=== PATIENT | male | born 1940 | race Caucasian/White ===

== ENCOUNTER 2023-04-22 23:07 | Emergency (ER) | payer MEDICARE ==
[2023-04-23 00:23] LABS: BASOPHILS % (AUTO) 0.7 %; EOSINOPHILS # (AUTO) 0.2 10^3/uL (0.0-0.7); EOSINOPHILS % (AUTO) 2.6 %; HCT - HEMATOCRIT 34.3 % (42.0-52.0); HGB - HEMOGLOBIN 11.3 g/dL (14.0-18.0); LYMPHOCYTES # (AUTO) 0.5 10^3/uL (1.5-3.5); LYMPHOCYTES % (AUTO) 8.3 %; MEAN CORPUSCULAR HEMOGLOBIN 29.8 pg (27.0-31.0); MEAN CORPUSCULAR HGB CONC 32.9 g/dL (32.0-36.0); MEAN CORPUSCULAR VOLUME 90.5 fL (80.0-94.0); MEAN PLATELET VOLUME 9.5 fL (7.4-11.4); MONOCYTES # (AUTO) 0.7 10^3/uL (0.0-1.0); MONOCYTES % (AUTO) 11.6 %; NEUTROPHILS # (AUTO) 4.4 10^3/uL (1.5-6.6); NEUTROPHILS % (AUTO) 76.5 %; PLT - PLATELET COUNT 108 10^3/uL (130-450); RED BLOOD COUNT 3.79 10^6/uL (4.70-6.10); RED CELL DISTRIBUTION WIDTH 13.3 % (12.0-15.0); WHITE BLOOD COUNT 5.8 x10^3/uL (4.8-10.8)
--- NOTE | 2023-04-23 00:28 | ED Physician Documentation ---
History of Present Illness - Stated complaint Stated Complaint: PEARSON/CP - Chief complaint Chief Complaint: Cardiac - Additonal information Additional information: 83-year-old male presenting to the emergency department with headache and chest pressure. Reports history of coronary artery disease, with 2 previous stents as well as hypertension and dyslipidemia for which she takes lisinopril and simvastatin. For the last 3 days has had low level headache. This was not maximal at time of onset. There is no associated thunderclap, syncope, fever or neck stiffness. Reports has taken Tylenol at home with only minimal symptomatic relief. Similarly over the course of the last 3 days he has had persistent chest pressure. He also reports that he has had cough but denies any congestion. Does report that he recently received his first Moderna COVID immunization as well as a flu shot last Wednesday. No known sick contacts. Review of Systems Constitutional: reports: Fatigue. denies: Fever, Chills, Myalgias Eyes: denies: Loss of vision Ears: denies: Loss of hearing, Ear pain Nose: denies: Rhinorrhea / runny nose, Foreign Body Throat: denies: Dental pain / toothache, Oral lesions / sores Cardiac: reports: Chest pain / pressure. denies: Palpitations Respiratory: reports: Cough GI: denies: Abdominal Pain, Nausea, Vomiting, Constipation, Diarrhea : denies: Dysuria Skin: denies: Rash Musculoskeletal: denies: Neck pain Neurologic: reports: Headache. denies: Generalized weakness Psychiatric: denies: Depressed Endocrine: denies: Polydypsia PD PAST MEDICAL HISTORY - Present Medications Home Medications: Ambulatory Orders Medication Instructions Recorded Confirmed Atenolol [Tenormin] 50 mg PO DAILY 04/22/23 Losartan [Cozaar] 50 mg PO DAILY 04/22/23 Simvastatin [Zocor] 20 mg PO DAILY 04/22/23 - Allergies Allergies/Adverse Reactions: Allergies Allergy/AdvReac Type Severity Reaction Status Date / Time No Known Drug Allergies Allergy Verified 04/22/23 23:18 PD ED PE NORMAL - Vitals Vital signs reviewed: Yes (Within normal limits) - General General: Alert and oriented X 3, No acute distress, Well developed/nourished - HEENT HEENT: Atraumatic, PERRL, EOMI, Ears normal, Moist mucous membranes, Pharynx benign, Dentition benign - Neck Neck: Supple, no meningeal sign, No bony TTP, No adenopathy, Thyroid normal, No JVD, No bruit, C-Spine cleared by NEXUS criteria - Cardiac Cardiac: RRR - Respiratory Respiratory: No respiratory distress - Abdomen Abdomen: Normal bowel sounds - Male Male : Deferred - Rectal Rectal: Deferred - Back Back: No CVA TTP - Derm Derm: Normal color - Extremities Extremities: No deformity - Neuro Neuro: Alert and oriented X 3, chef german 2-12 intact, No motor deficit, No sensory deficit, Normal speech Results - Vitals Vitals: Vital Signs - 24 hr 04/22/23 23:10 Temperature 37.0 C Heart Rate 62 Respiratory 18 Rate Blood Pressure 150/62 H O2 Saturation 98 Oxygen O2 Source Room air - EKG (time done) 2321 EKG releavant findings:: EKG personally interpreted by author of this note. Relevant findings are: Sinus rhythm with rate 65 bpm. Normal axis. MA interval prolonged at 255 ms. Normal QRS and QTc intervals. No ST segment elevations or T wave inversions. - Labs Labs: Laboratory Tests 04/22/23 04/23/23 04/23/23 23:20 00:19 00:19 WBC 5.8 RBC 3.79 L Hgb 11.3 L Hct 34.3 L MCV 90.5 MCH 29.8 MCHC 32.9 RDW 13.3 Plt Count 108 L MPV 9.5 Neut # (Auto) 4.4 Lymph # (Auto) 0.5 L [place] # (Auto) 0.7 Eos # (Auto) 0.2 Baso # (Auto) 0.0 Absolute Nucleated RBC 0.00 Nucleated RBC % 0.0 Sodium 136 Potassium 3.8 Chloride 105 Carbon Dioxide 24 Anion Gap 7.0 BUN 16 Creatinine 0.9 Estimated GFR (MDRD) 81 L Glucose 104 Calcium 8.9 Total Bilirubin 0.5 AST 18 ALT 25 Alkaline Phosphatase 68 Troponin I High Sens 6.6 Total Protein 6.0 L Albumin 3.8 Globulin 2.2 Albumin/Globulin Ratio 1.7 Lipase 36 Nasal Adenovirus (PCR) NOT DETECTED Nasal B. parapertussis DNA (PCR) NOT DETECTED Nasal Coronavir 229E PCR NOT DETECTED Nasal Coronavir HKU1 PCR NOT DETECTED Nasal Coronavir NL63 PCR NOT DETECTED Nasal Coronavir OC43 PCR NOT DETECTED Nasal Enterovir/Rhinovir PCR NOT DETECTED Nasal Influenza B PCR NOT DETECTED Nasal Influenza A PCR NOT DETECTED Nasal Parainfluen 1 PCR NOT DETECTED Nasal Parainfluen 2 PCR NOT DETECTED Nasal Parainfluen 3 PCR NOT DETECTED Nasal Parainfluen 4 PCR NOT DETECTED Nasal RSV (PCR) NOT DETECTED Nasal B.pertussis DNA PCR NOT DETECTED Nasal C.pneumoniae (PCR) NOT DETECTED Stanislav Human Metapneumo PCR NOT DETECTED Nasal M.pneumoniae (PCR) NOT DETECTED Nasal SARS-CoV-2 (PCR) NOT DETECTED PD Medical Decision Making - ED course Complexity details: reviewed results, re-evaluated patient, considered differential, d/w patient ED course: Patient 83-year-old male presenting to the emergency department with 3-day history headache, cough, chest pressure. Afebrile, hemodynamically stable. EKG nonacute. No indications PE as patient does not have active tachypnea, tachycardia, shortness of breath. Labs all very reassuring. High-sensitivity troponin is negative. Chest x-ray negative for pneumothorax, hemothorax or intrathoracic abnormality per my int erpretation. Departure - Departure Disposition: 01 Home, Self Care Clinical Impression: Chest pressure Headache Qualifiers: Headache type: unspecified Headache chronicity pattern: acute headache Intractability: not intractable Qualified Code(s): R51.9 - Headache, unspecified Comments: Thank you for allowing us to care for you today [facility]. Today in the emergency department your evaluated for any possible life- threatening medical emergency. All the testing performed in the emergency department today including your EKG, blood work and chest x-ray are all very reassuring. You did not test positive for the SARS COVID virus or influenza and there is no indication of injury to your heart at this time. I do want you to drink plenty fluids and get plenty of rest over the course the next few days as I believe you could be suffering from a mild viral illness. I also want you to follow-up with your primary care doctor concerning your ED visit as soon as possible. If it anytime you have new or worsening symptoms please return to the emergency department immediately for reevaluation. Forms: PCP List
[2023-04-23 00:40] LABS: ALBUMIN 3.8 g/dL (3.2-5.5); ALBUMIN/GLOBULIN RATIO 1.7 (1.0-2.2); BILIRUBIN,TOTAL 0.5 mg/dL (0.2-1.0); CALCIUM 8.9 mg/dL (8.5-10.3); CREATININE 0.9 mg/dL (0.6-1.3); POTASSIUM 3.8 mmol/L (3.5-4.5)
[2023-04-23 00:45] LABS: TROPONIN I HIGH SENSITIVITY 6.6 ng/L (2.3-19.7)
[2023-04-23 00:49] LABS: B. PARAPERTUSSIS- RESP PCR PAN NOT DETECTED; B. PERTUSSIS- RESP PCR PANEL NOT DETECTED; C. PNEUMONIAE- RESP PCR PANEL NOT DETECTED; CORONAVIRUS 229E-RESP PCR NOT DETECTED; CORONAVIRUS HKU1-RESP PCR NOT DETECTED; CORONAVIRUS NL63-RESP PCR NOT DETECTED; CORONAVIRUS OC43-RESP PCR NOT DETECTED; HUMAN METAPNEUMOVIRUS NOT DETECTED; INFLUENZA A- RESP PCR PANEL NOT DETECTED; INFLUENZA B - RESP PCR PANEL NOT DETECTED; M. PNEUMONIAE- RESP PCR PANEL NOT DETECTED; PARAINFLUENZA VIRUS 1 NOT DETECTED; PARAINFLUENZA VIRUS 2 NOT DETECTED; PARAINFLUENZA VIRUS 3 NOT DETECTED; PARAINFLUENZA VIRUS 4 NOT DETECTED; RHINOVIRUS/ENTEROVIRUS NOT DETECTED; RSV- RESP PCR PANEL NOT DETECTED; SARS-CoV-2 -RESP PCR PANEL NOT DETECTED
[2023-04-23] MEDS ORDERED: KETOROLAC 30 MG/ML VIAL IVP STA (00:53)
--- NOTE | 2023-04-23 01:16 | XRAY Report ---
PROCEDURE: Chest 1 View X-Ray INDICATIONS: Chest pain TECHNIQUE: One view of the chest was acquired. COMPARISON: None. FINDINGS: Surgical changes and devices: None. Lungs and pleura: No pleural effusions or pneumothorax. Lungs are clear. Mediastinum: Mediastinal contours appear normal. Heart size is normal. Bones and chest wall: Degenerative changes. IMPRESSION: Portable single view radiograph without acute abnormality. Reviewed by: Gigi Carroll MD on 04/23/2023 1:14 AM PDT Approved by: Gigi Carroll MD on 04/23/2023 1:14 AM PDT Station ID: [id number]
[2023-04-23 01:47] VITALS: BP 124/74; O2SAT 100
== END 2023-04-23 01:44 | disposition home or self-care (01) ==
LOC: ED 23:07
DX: R07.89 Other chest pain (principal); R51.9 Headache, unspecified; Z20.822 Contact with and (suspected) exposure to COVID-19
CPT/HCPCS: 36415; 80053; 83690; 84484; 85025; 87633; 93005; 96374; 99283